=== PATIENT | male | born 1965 | race Caucasian/White ===

== ENCOUNTER 2018-08-27 06:32 | Day surgery (SDC) | payer OTHER ==
--- NOTE | 2018-08-20 14:35 | RAD REPORT ---
EXAM DESCRIPTION: RAD - Chest Pa And Lat (2 Views) - 08/20/2018 2:23 pm CLINICAL HISTORY: Preop chest, pending cardiac catheterization COMPARISON: August 2014 TECHNIQUE: PA and lateral views of the chest were obtained. FINDINGS: The lungs are clear of failure, infiltrate or mass. Lung markings are not substantially di fferent from comparison. Heart size is normal and central vasculature is within normal limits. No pleural effusion or pneumothorax seen. No acute bony finding noted. No aortic abnormality. IMPRESSION: No acute cardiopulmonary process.
[2018-08-20 15:26] LABS: Absolute Neutrophil 8.1 K/uL (1.8-8.0); Basophils % 0.4 % (0-1.3); Eosinophils % 1.7 % (0-4.4); Hematocrit 47.7 % (39.6-49.0); Lymphocytes % 17.5 % (15.3-44.8); MPV 8.8 fL (7.6-11.3); Monocytes % 7.5 % (3.3-12.3); RBC Red Blood Cell Count 4.76 M/uL (4.33-5.43)
[2018-08-20 15:27] LABS: Absolute Monocytes 0.8 K/uL (0.1-1.3)
[2018-08-20 15:30] LABS: Protime INR 0.93
[2018-08-20 15:41] LABS: Potassium 4.2 mmol/L (3.5-5.1)
[2018-08-27] MEDS ORDERED: NA CHLORIDE 0.9% 500 ML ONE (07:40)
[2018-08-27] MEDS ORDERED: FENTANYL CITR 100 MCG/2 ML ONE ×2 (09:00→10:31)
[2018-08-27] MEDS ORDERED: MIDAZOLAM HCL 2 MG/2 ML INJ ONE ×3 (09:00→09:25)
[2018-08-27] MEDS ORDERED: HEPA 1000U/500MLS 1,000 UNIT/500 ML BAG IV ONE (09:00)
[2018-08-27] MEDS ORDERED: LIDOCAINE 1% MPF 30 ML VIAL ONE (09:01)
[2018-08-27 11:43] VITALS: BP 137/86; TEMP 98.1; O2SAT 97
--- NOTE | 2018-08-27 20:42 | OP ---
Surgeon: Eric Jeffrey MD Park Activities Coordinator: Sahil Jack. The patient admitted as an outpatient to the [facility] on 08/27/2018. Reason For Admission: Unstable angina. Procedures: Left heart catheterization and selective coronary arteriogram. Procedure In Detail: The patient was prepped and draped in the routine sterile fashion, given 4 mg o f Versed for IV sedation. Right common femoral artery access obtained easily with a 6-Latv[place] sheath. Angiography there was perfectly normal. Angio-Seal was used to close the case successfully. A 6-F rench Rody catheter left and right were used to do the angiography. He was found to have mild-to- moderate plaquing throughout the LAD and RCA and circumflex. No focal stenosis. He was right domina nt. 6-[place]vian sheath and catheters were used. No complications. Blood Loss: 5 cc. Total Conscious Sedation: 30 minutes. Postoperative Diagnosis: Mild coronary artery disease. Plan: Plan is for medical therapy. JOSSELYN/BECKY Voice ID: [id number] Report ID: [id number]
== END 2018-08-27 11:30 | disposition home or self-care (01) ==
LOC: CCL 06:32
DX: I25.10 Atherosclerotic heart disease of native coronary artery without angina pectoris (principal); I10 Essential (primary) hypertension; E78.00 Pure hypercholesterolemia, unspecified; F17.210 Nicotine dependence, cigarettes, uncomplicated
CPT/HCPCS: 36415; 71046; 80048; 85025; 85610; 85730; 93454; C1760; C1893; J2250; J3010

== ENCOUNTER 2019-01-21 08:27 | Emergency (ER) | payer OTHER ==
--- OUTSIDE RECORDS SUMMARY | 2019-01-21 08:32 | XMS REPORT ---
:1965 [facility] Address [address] [place] [address] Care Team Providers Name Role Phone Unavailable Unavailable Unavailable Problems This patient has no known problems. Allergies, Adverse Reactions, Alerts This patient has no known allergies or adverse reactions. Medications This patient has no known medications.
--- NOTE | 2019-01-21 09:30 | RAD REPORT ---
EXAM DESCRIPTION: CT - CTHCSPWOC - 01/21/2019 9:18 am CLINICAL HISTORY: Trauma, head and neck injury. PAIN COMPARISON: No comparisons TECHNIQUE: Axial 5 mm thick images of the head were obtained. Axial 2 mm thick images of the cervical spine were obtained with sagittal and coronal reconstruction images generated and reviewed. All CT scans are performed using dose optimization technique as appropriate and may include automated exposure control or mA/KV adjustment according to patient size. 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 The paranasal sinuses and mastoids are clear.The calvarium is intact. CT CERVICAL SPINE WITHOUT CONTRAST: No fracture or acute subluxation.Mild lower cervical degenerative changes seen with small posterior o steophyte head C6-7 and C7-T1. Minimal degenerative anterolisthesis of C5 on C6.No prevertebral soft tissues swelling is identified. IMPRESSION: No acute intracranial or cervical spine findings. Mild lower cervical degenerative changes.
--- NOTE | 2019-01-21 09:32 | RAD REPORT ---
EXAM DESCRIPTION: RAD - Chest Single View - 01/21/2019 9:21 am CLINICAL HISTORY: fall injury Chest pain. COMPARISON: Chest Pa And Lat (2 Views) dated 08/20/2018; CHEST SINGLE VIEW dated 08/25/2014; CHEST SIN GLE VIEW dated 08/12/2014; Head C Spine Mpr Wo Con dated 01/21/2019 FINDINGS: Portable technique limits examination quality. The lungs are grossly clear. The heart is normal in size. No displaced fractures. IMPRESSION: No acute intrathoracic process suspected.
[2019-01-21] MEDS ORDERED: DERMABOND SKIN ADHESIVE TOP ONE (10:37)
[2019-01-21] MEDS ORDERED: ACETAMINOPHEN 325 MG TABLET ONE (10:37)
[2019-01-21] MEDS ORDERED: TETANUS & DIPHTHERIA TOX,ADULT 0.5 ML VIAL ONE (10:37)
--- NOTE | 2019-01-21 10:54 | ER ---
Nurse's Notes [facility] Name: Reji Hyde Age: 53 yrs Sex: Male : 1965 Arrival Date: 01/21/2019 Time: 08:33 Bed 19 Private MD: Amarjit Dorsey Diagnosis: Laceration without foreign body of left ear;Superficial injury of head;Fall on and from ladder Presentation: 01/21 08:58 Presenting complaint: Patient states: was up on roof, was trying to come down off the iw roof, ladder slipped out from under him, fell approx 10 feet, hit ladder that was on the ground, laceration to left ear, denies LOC, also c/o mild headache. Care prior to arrival: None. Mechanism of Injury: Fall from roof approximately 10 feet. Trauma event details: Injury occurred in the [facility], Injury occurred: at home. Injury occurred: January 21, 2019. 08:58 Acuity: FE 3 iw 08:58 Method Of Arrival: Ambulatory iw 09:06 Transition of care: patient was not received from another setting of care. Onset of iw symptoms was January 21, 2019. Risk Assessment: Do you want to hurt yourself or someone else? Patient reports no desire to harm self or others. Initial Sepsis Screen: Does the patient meet any 2 criteria? No. Patient's initial sepsis screen is negative. Does the patient have a suspected source of infection? No. Patient's initial sepsis screen is negative. Trauma Activation: Alert Physician: ED Physician; Name: ; Notified At: ; Arrived At: Physician: General Surgeon; Name: ; Notified At: ; Arrived At: Physician: Radiology; Name: ; Notified At: ; Arrived At: Physician: Respiratory; Name: ; Notified At: ; Arrived At: Physician: Lab; Name: ; Notified At: ; Arrived At: Historical: - Allergies: 09:01 Morphine; iw - Home Meds: 09:09 Metoprolol Tartrate Oral [Active]; Enalapril Oral [Active]; Isosorbide Mononitrate Oral iw [Active]; aspirin 81 mg Oral TbEC 1 tab once daily [Active]; - Immunization history: Last tetanus immunization: unknown. - Ebola Screening: : Patient negative for fever greater than or equal to 101.5 degrees Fahrenheit, and additional compatible Ebola Virus Disease symptoms Patient denies exposure to infectious person Patient denies travel to an Ebola-affected area in the 21 days before illness onset No symptoms or risks identified at this time. - Social history:: Smoking status: unknown. Screenin:06 Abuse screen: Denies threats or abuse. Denies injuries from another. Tuberculosis iw screening: No symptoms or risk factors identified. 09:30 Nutritional screening: No deficits noted. Fall Risk None identified. ph Primary Survey: 09: NO uncontrolled hemorrhage observed. A: The patient is alert. Airway: patent. iw Breathing/Chest: Respiratory pattern: regular, Respiratory effort: spontaneous, Chest inspection: symmetrical rise and fall of the chest. Circulation: Heart tones present. Skin color: pink. Disability Alert. Exposure/Environment: All clothing and personal items were removed. Forensic evidence collection is not deemed to be indicated at this time. Items placed in patient belonging bag. 10:15 Reassessment Airway Airway Patent Breathing/Chest Respiratory pattern Regular ph Disability Alert. Secondary Survey: 09:29 HEENT: Ears: laceration noted to L ear. ph Assessment: 09:27 General: Appears in no apparent distress. comfortable, well groomed, Behavior is calm, ph cooperative, appropriate for age, Smells of alcohol, admits to drinking last night. Pain: Complains of pain in left ear. Neuro: Level of Consciousness is awake, alert, obeys commands, Oriented to person, place, time, situation, Denies blurred vision dizziness, headache. Cardiovascular: Capillary refill < 3 seconds in bilateral Patient's skin is warm and dry. Respiratory: Airway is patent Respiratory effort is Respiratory pattern is regular, symmetrical. GI: Patient currently denies abdominal pain, nausea, vomiting. Derm: Skin is intact, is healthy with good turgor, Skin is pink, warm \\T\\ dry. Musculoskeletal: Circulation, motion, and sensation intact. Range of motion: intact in all extremities. 10:10 Reassessment: Patient appears in no apparent distress at this time. Patient is alert, ph oriented x 3, equal unlabored respirations, skin warm/dry/pink. Pt c/o headache, ERP notified and verbal order received for PO Tylenol. 10:15 Reassessment: Patient appears in no apparent distress at this time. Patient and/or ph family updated on plan of care and expected duration. Pain level reassessed. Patient is alert, oriented x 3, equal unlabored respirations, skin warm/dry/pink. Pt standing at door of room , states, " He's getting antsy, do you know how much longer it'll be?" Explained that we were awaiting ERP to repair laceration on ear and that I would return w/ Tylenol and tetanus shot. 10:25 Reassessment: Returned to room to administer medications and found that pt and ph were not in room, checked restroom and lobby and were not found, will chart out as eloped. Vital Signs: 08:59 BP 114 / 68; Pulse 110; Resp 18; Temp 99.1; Pulse Ox 95% on R/A; Weight 80.29 kg; iw Height 5 ft. 8 in. (172.72 cm); Pain 5/10; 10:00 BP 118 / 72; Pulse 100; Resp 18; Pulse Ox 99% on R/A; ph 08:59 Body Mass Index 26.91 (80.29 kg, 172.72 cm) iw [place] Coma Score: 08:59 Eye Response: spontaneous(4). Verbal Response: oriented(5). Motor Response: obeys iw commands(6). Total: 15. 10:00 Eye Response: spontaneous(4). Verbal Response: oriented(5). Motor Response: obeys ph commands(6). Total: 15. Trauma Score (Adult): 08:59 Eye Response: spontaneous(1); Verbal Response: oriented(1); Motor Response: obeys iw commands(2); Systolic BP: > 89 mm Hg(4); Respiratory Rate: 10 to 29 per min(4); [place] Score: 15; Trauma Score: 12 10:00 Eye Response: spontaneous(1); Verbal Response: oriented(1); Motor Response: obeys ph commands(2); Systolic BP: > 89 mm Hg(4); Respiratory Rate: 10 to 29 per min(4); [place] Score: 15; Trauma Score: 12 ED Course: 08:33 Patient arrived in ED. ag5 08:34 Amarjit Dorsey MD is Private Physician. ag5 08:59 Triage completed. iw 09:02 [facility] pm1 09:02 Franko Downey MD is Attending Physician. pm1 09:07 Arm band placed on. iw 09:07 Patient maintains SpO2 saturation greater than 95% on room air. Thermoregulation: warm iw blanket given to patient. 09:08 Patient has correct armband on for positive identification. iw 09:11 Althea Velázquez, RN is Primary Nurse. ph 09:18 X-ray completed. Patient tolerated procedure well. Patient moved to radiology via kw wheelchair. Patient moved back from radiology. 09:19 CT Head C Spine In Process Unspecified. EDMS 09:19 Chest Single View XRAY In Process Unspecified. EDMS Administered Medications: 10:40 Not Given (Patient Eloped): Tetanus-Diphtheria Toxoid Adult 0.5 ml IM once ph Intake: 09:30 PO: 0ml; Total: 0ml. ph Output: 09:30 Urine: 0ml; Total: 0ml. ph Outcome: 10:37 Eloped from patient exam room, after seeing physician Time discovered patient gone: ph January 21, 2019 at 10:25 10:37 Condition: stable 10:56 Patient left the ED. ph Signatures: Dispatcher [employer] EDLianna Spear, RN RN Linda Granados Althea Velázquez, RN RN Nghia Main, WAX PUMPER WAX PUMPER pm1 Juliette Jorgensen ag5
--- NOTE | 2019-01-21 10:54 | EDPHYS ---
Physician Documentation [facility] Name: Reji Hyde Age: 53 yrs Sex: Male : 1965 Arrival Date: 01/21/2019 Time: 08:33 Bed 19 Private MD: Amarjit Dorsey ED Physician Franko Downey HPI: 01/21 09:35 This 53 yrs old Male presents to ER via Ambulatory with complaints of Fall pm1 Injury, Laceration to Left Ear. 09:35 Details of fall: The patient fell from a height, from a ladder, approximately 10 feet. pm1 Onset: The symptoms/episode began/occurred this morning. Associated injuries: The patient sustained left ear. The patient has not experienced similar symptoms in the past. The patient has not recently seen a physician. Patient was getting down from ladder on the roof that was 10 feet high. The ladder slid to the side off the roof and the patient held on. He sustained a laceration to his left ear. No headache, neck pain, LOC, AMS, vomiting. Historical: - Allergies: 09:01 Morphine; iw - Home Meds: 09:09 Metoprolol Tartrate Oral [Active]; Enalapril Oral [Active]; Isosorbide Mononitrate Oral iw [Active]; aspirin 81 mg Oral TbEC 1 tab once daily [Active]; - Immunization history: Last tetanus immunization: unknown. - Ebola Screening: : Patient negative for fever greater than or equal to 101.5 degrees Fahrenheit, and additional compatible Ebola Virus Disease symptoms Patient denies exposure to infectious person Patient denies travel to an Ebola-affected area in the 21 days before illness onset No symptoms or risks identified at this time. - Social history:: Smoking status: unknown. ROS: 09:35 Constitutional: Negative for fever, chills, and weight loss, Eyes: Negative for injury, pm1 pain, redness, and discharge. 09:35 Neck: Negative for injury, pain, and swelling, Cardiovascular: Negative for chest pain, palpitations, and edema, Respiratory: Negative for shortness of breath, cough, wheezing, and pleuritic chest pain, Abdomen/GI: Negative for abdominal pain, nausea, vomiting, diarrhea, and constipation, Back: Negative for injury and pain, : Negative for injury, bleeding, discharge, and swelling, MS/Extremity: Negative for injury and deformity. 09:35 Neuro: Negative for headache, weakness, numbness, tingling, and seizure. 09:35 ENT: Negative for drainage from ear(s), ear pain, rhinorrhea, sore throat, difficulty swallowing, difficulty handling secretions, hoarseness. 09:35 Skin: Positive for laceration(s), of the left ear. Exam: 09:35 Constitutional: This is a well developed, well nourished patient who is awake, alert, pm1 and in no acute distress. Eyes: Pupils equal round and reactive to light, extra-ocular motions intact. Lids and lashes normal. Conjunctiva and sclera are non-icteric and not injected. Cornea within normal limits. Periorbital areas with no swelling, redness, or edema. 09:35 ENT: Nares patent. No nasal discharge, no septal abnormalities noted. Tympanic membranes are normal and external auditory canals are clear. Oropharynx with no redness, swelling, or masses, exudates, or evidence of obstruction, uvula midline. Mucous membranes moist. Neck: Trachea midline, no thyromegaly or masses palpated, and no cervical lymphadenopathy. Supple, full range of motion without nuchal rigidity, or vertebral point tenderness. No Meningismus. Chest/axilla: Normal chest wall appearance and motion. Nontender with no deformity. No lesions are appreciated. Cardiovascular: Regular rate and rhythm with a normal S1 and S2. No gallops, murmurs, or rubs. Normal PMI, no JVD. No pulse deficits. Respiratory: Lungs have equal breath sounds bilaterally, clear to auscultation and percussion. No rales, rhonchi or wheezes noted. No increased work of breathing, no retractions or nasal flaring. Back: No spinal tenderness. No costovertebral tenderness. Full range of motion. Skin: Warm, dry with normal turgor. Normal color with no rashes, no lesions, and no evidence of cellulitis. MS/ Extremity: Pulses equal, no cyanosis. Neurovascular intact. Full, normal range of motion. 09:35 Head/face: Noted is no obvious of injury or deformity except a laceration(s), that is linear, 1.5 cm(s), of the pinna of left ear. 09:35 Neuro: Orientation: is normal, Motor: is normal, moves all fours. Vital Signs: 08:59 BP 114 / 68; Pulse 110; Resp 18; Temp 99.1; Pulse Ox 95% on R/A; Weight 80.29 kg; iw Height 5 ft. 8 in. (172.72 cm); Pain 5/10; 10:00 BP 118 / 72; Pulse 100; Resp 18; Pulse Ox 99% on R/A; ph 08:59 Body Mass Index 26.91 (80.29 kg, 172.72 cm) iw Oswaldo Coma Score: 08:59 Eye Response: spontaneous(4). Verbal Response: oriented(5). Motor Response: obeys iw commands(6). Total: 15. 10:00 Eye Response: spontaneous(4). Verbal Response: oriented(5). Motor Response: obeys ph commands(6). Total: 15. Trauma Score (Adult): 08:59 Eye Response: spontaneous(1); Verbal Response: oriented(1); Motor Response: obeys iw commands(2); Systolic BP: > 89 mm Hg(4); Respiratory Rate: 10 to 29 per min(4); [place] Score: 15; Trauma Score: 12 10:00 Eye Response: spontaneous(1); Verbal Response: oriented(1); Motor Response: obeys ph commands(2); Systolic BP: > 89 mm Hg(4); Respiratory Rate: 10 to 29 per min(4); [place] Score: 15; Trauma Score: 12 MDM: 09:04 Patient medically screened. pm1 09:56 Data reviewed: vital signs. Data interpreted: Pulse oximetry: on room air is 99 %. pm1 Interpretation: normal. 10:29 ED course: Preparing to perform laceration repair of left ear and patient and his pm1 are not present in room. 01/21 09:10 Order name: CT Head C Spine; Complete Time: 09:37 pm1 01/21 09:10 Order name: Chest Single View XRAY; Complete Time: 09:37 pm1 Administered Medications: 10:40 Not Given (Patient Eloped): Tetanus-Diphtheria Toxoid Adult 0.5 ml IM once ph Disposition: 01/21/19 10:53 Patient left the facility after being seen by provider. Preliminary diagnosis are Fall on and from ladder, Laceration without foreign body of left ear, Superficial injury of head. - Patient left due to (see nurse's notes). - Condition is Undetermined. - Problem is new. - Symptoms are unchanged. Addendum: 01/23/2019 07:29 Co-signature as Attending Physician, Franko Downey MD. g s Signatures: Dispatcher [employer] EDLianna Spear RN RN Althea Velázquez RN RN Nghia Main, LAWN SERVICE SUPERVISOR LAWN SERVICE SUPERVISOR pm1 Franko Downey MD MD Corrections: (The following items were deleted from the chart) 01/21 10:56 10:53 01/21/2019 10:53 Patient left the facility after being seen by provider. ph Preliminary diagnosis is Fall on and from ladderLaceration without foreign body of left ear; Superficial injury of head. Reason stated they are leaving due to (see nurse's notes). Condition is Undetermined. Problem is new. Symptoms are unchanged. pm1
[2019-01-21 11:18] VITALS: TEMP 99.1
[2019-01-21 11:19] VITALS: BP 118/72; O2SAT 99
== END 2019-01-21 10:56 | disposition left against medical advice (07) ==
LOC: ER 08:27
DX: S01.312A Laceration without foreign body of left ear, initial encounter (principal); W11.XXXA Fall on and from ladder, initial encounter; Z88.5 Allergy status to narcotic agent; Z79.82 Long term (current) use of aspirin; Z53.29 Procedure and treatment not carried out because of patient's decision for other reasons
CPT/HCPCS: 70450; 71045; 72125; 90714; 99284